=== PATIENT | female | born 1945 | race Hispanic/Latino ===

== ENCOUNTER 2017-08-02 14:27 | Outpatient (CLI) | payer MEDICARE ==
--- NOTE | 2017-08-02 14:47 | XRay Report ---
Right shoulder 3 views. History: Shoulder pain. Findings: There are no fractures or other acute findings. There is narrowing of the glenohumeral joint. Impression: Arthritic changes of the glenohumeral joint with no other significant findings.
== END 2017-08-02 14:28 | disposition home or self-care (01) ==
LOC: SPVIMAG 14:27
PROVIDERS: ATTEND Orthopaedic Surgery Sports Medicine
DX: M19.011 Primary osteoarthritis, right shoulder (principal)